=== PATIENT | male | born 1955 | race Two or more races ===

== ENCOUNTER 2025-02-01 01:58 | Emergency (ER) | payer MEDICARE, MEDICAID, SELFPAY ==
[2025-02-01] VITALS (7 sets, daily range): BP systolic 87–140; BP diastolic 57–79; PULSE 79–150; RESP 15–95; TEMP 36.6–36.8; O2SAT 93–96; BMI 32.9
--- NOTE | 2025-02-01 03:48 | PD.EDRME ---
Rapid Medical Screening Exam RME Arrival date/time: 02/01/25 01:58 Chief Complaint: General Adult/Misc Complain Time Seen by Provider: 02/01/25 02:44 Vital signs: Vital Signs Temperature 97.8 F 02/01/25 01:59 Pulse Rate 150 H 02/01/25 01:59 Respiratory Rate 22 H 02/01/25 01:59 Blood Pressure 108/71 02/01/25 01:59 Pulse Oximetry (%) 95 02/01/25 01:59 Oxygen Delivery Method Room Air 02/01/25 01:59 Vital signs reviewed by provider: Yes RME Narrative: 69-year-old male presents to the ED with a complaint of shaking chills that woke him out of his sound sleep. His only other complaint is nausea. He denies any fever, cough, shortness of breath, runny nose or nasal congestion, ear pain or sore throat, urinary frequency or burning with urination. I have greeted and performed a focused initial assessment of this patient. A comprehensive ED assessment and evaluation of the patient, analysis of all test results, and completion of the medical decision making process will be conducted by additional ED providers.
--- NOTE | 2025-02-01 03:52 | XR_ITS ---
Examination: AP chest single view Technique one AP portable semiupright chest single view Date and time: February 01, 2025 0452 hours INDICATIONS: Chills, sepsis protocol today. FINDINGS: Normal heart size. Lungs are clear. The osseous structures are intact IMPRESSION: No active disease
--- NOTE | 2025-02-01 04:01 | EDNOTE_ITS ---
ED Fever RME/HPI General Chief Complaint: General Adult/Misc Complain Stated Complaint: WOKE UP SHAKING Time Seen by Provider: 02/01/25 02:44 Arrival date/time: 02/01/25 01:58 RME / HPI RME / HPI Narrative: 69-year-old male presents to the ED with a complaint of shaking chills that woke him out of his sound sleep. His only other complaint is nausea. He denies any fever, cough, shortness of breath, runny nose or nasal congestion, ear pain or sore throat, urinary frequency or burning with urination. I have greeted and performed a focused initial assessment of this patient. A comprehensive ED assessment and evaluation of the patient, analysis of all test results, and completion of the medical decision making process will be conducted by additional ED providers. ------ This section includes all my notes and documentations, including HPI, PE, and ED course. Agustin Dickens MD HPI: 69yo male brought in by his son presents to the ED for a chief complaint of chills. Patient states he woke up having severe chills a few hours ago. With associated sweating. He denies cough, fever, N/V, abdominal pain, chest pain, dysuria.concerned due to sepsis several years ago with similar symptoms. No other complaints reported. ROS: All negative except as documented in HPI. Physical Exam: General: Alert and oriented. No acute distress when remaining still. Eyes: Conjunctivae and lids clear. ENT: No nasal congestion. Pharynx normal. TM normal bilaterally. Neck: Supple. Heart: Sinus tachycardia. Lungs: No respiratory distress. Good air movement. No rhonchi, wheezing, rales. Abdomen: Soft and nontender. Normal bowel sounds. No distension. No rebound or guarding. Back: No CVA tenderness. Skin: Warm and clammy. Neuro: Alert and oriented X 3. I reviewed all diagnostic test results. My interpretation of the EKG is sinus tachycardia with nonspecific ST-T changes. My interpretation of the chest x-ray is no acute findings, official radiology report is pending. COVID/influenza negative. Complete diagnostic test results pending. For treatment, I ordered IV fluid and Zofran and Rocephin and Tylenol and Toradol. At 6 AM on 02/01/2025, the care of the patient was transferred to Dr. Martinez. Agustin Dickens MD Related Data Home Medications ?Medication ?Instructions ?Recorded ?Confirmed aspirin 81 mg chewable tablet 81 mg PO QDAY 01/04/22 0 01/04/22 atorvastatin 40 mg tablet 40 mg PO QDAY 01/04/2201/04 Previous Rx's ?Medication ?Instructions ?Recorded acetaminophen 500 mg tablet 500 mg PO Q6H PRN fever or pain 01/17/23 (Tylenol Extra Strength) #30 tabs Allergies Allergy/AdvReac Type Severity Reaction Status Date / Time No Known Allergies Allergy Verified 01/16/23 22:38 Review of Systems Review of Systems Systems Reviewed: All systems reviewed, normal except as documented Past Medical History Past Medical History CARDIAC: Positive Hypercholesterolemia; Negative Congestive Heart Failure RESPIRATORY: Negative Chronic Obstructive Pulmonary Disease (COPD) GENITOURINARY: Negative Renal Disease ENDOCRINE: Negative Diabetes Mellitus Type 1 or Diabetes Mellitus Type 2 Social History SMOKING STATUS: Never smoker SUBSTANCE USE: does not use Physical Exam Narrative Physical exam: As noted in HPI. Course Quality Measures none Orders Category Date Time Status Bedside Blood Glucose NOW Care 02/01/25 03:52 Active Bedside COVID-19 Antigen Test NOW Care 02/01/25 03:55 Active Bedside Influenza A&B Antigen Test NOW Care 02/01/25 03:55 Completed Maintenance Service Dispatcher Q4H START 00 Care 02/01/25 03:52 Active Insert IV NOW Care 02/01/25 03:52 Active Strict Intake and Output Routine Care 02/01/25 03:52 Ordered XR chest 1V SEPSIS PROTOCOL Stat Exams 02/01/25 03:52 Taken Blood Culture (Lab) Stat Lab 02/01/25 04:10 Received CBC Stat Lab 02/01/25 04:09 Received CRP [C-Reactive Protein] Stat Lab 02/01/25 04:09 Received Comprehensive Metabolic Panel Stat Lab 02/01/25 04:09 Received ESR [Sed Rate (ESR)] Stat Lab 02/01/25 04:09 Received Lactate (Lactic Acid) Stat Lab 02/01/25 04:09 Results Magnesium Stat Lab 02/01/25 04:09 Received Partial Thromboplastin Time Stat Lab 02/01/25 04:09 Completed Procalcitonin Stat Lab 02/01/25 04:09 Received Prothrombin Time with INR Stat Lab 02/01/25 04:09 Completed Troponin I Stat Lab 02/01/25 04:09 Received Urinalysis Stat Lab 02/01/25 04:05 Completed Urine Culture Stat Lab 02/01/25 04:05 Received Acetaminophen Tab [Tylenol Tab] Med 02/01/25 05:22 Once 650 mg PO X1 ONE Ketorolac Inj [Toradol Inj] Med 02/01/25 05:22 Once 15 mg IVP X1 ONE Ondansetron Inj [Zofran Inj] Med 02/01/25 05:22 Once 4 mg IVP X1 ONE Sodium Chloride 0.9% 1000 ml [Ns] 1,000 ml Med 02/01/25 05:22 Ordered IV 999 mls/hr cefTRIAXone/D5w 1gm IV premix [Rocephin/D5w 1gm IV Med 02/01/25 05:22 Ordered premix] 50 ml IV X1 EKG (RT) Stat RT 02/01/25 03:52 Ordered Oxygen Delivery NOW RT 02/01/25 03:52 Active Vital Signs Vital signs: Vital Signs Temperature 97.8 F 02/01/25 01:59 Pulse Rate 150 H 02/01/25 01:59 Respiratory Rate 22 H 02/01/25 01:59 Blood Pressure 108/71 02/01/25 01:59 Pulse Oximetry (%) 95 02/01/25 01:59 Oxygen Delivery Method Room Air 02/01/25 01:59 Fever MDM Narrative MDM Narrative:: Scribe Attestation: 02/01/25 - Belgica Guerrero am scribing for and in the presence of Dr. Dickens. 69yo male brought in by his son presents to the ED for a chief complaint of chills. Patient states he woke up having significant chills a few hours ago. Patient reports associated sweating. He denies any cough, fever, N/V, abdominal pain, chest pain, dysuria or any other associated symptoms. Son denies any recent sick contacts. No other complaints reported. Patient data External records reviewed:: [facility] previous records (Per chart review, patient was seen here on 01/16/23 for bronchitis.) Clinical information provided by:: patient and family (son) Social determinants that could affect healthcare access:: none Patient has the following chronic illnesses:: HLD, BPH How is presenting disease/condition affected by chronic disease/condition?: u neffected by Evaluation data The following diagnostics were reviewed and interpreted by me:: lab results, radiology exam(s) and EKG tracing(s) (My interpretation of the EKG is: Sinus tachycardia (133 bpm) with nonspecific ST-T changes. Agustin Dickens MD) Lab and/or radiology exams considered but not ordered:: none Interpretation Summary: Complete diagnostic test results are pending. Medications / Prescriptions Medications or Prescriptions considered but not ordered:: none Medication administrations:: Medication Administration History Acetaminophen (Acetaminophen 325 Mg Tablet) 650 mg PO X1 ONE Stop: 02/01/25 05:23 Ceftriaxone Sodium/Dextrose (Rocephin/D5w 1gm Iv Premix) 50 mls @ 100 mls/hr IV X1 ONE Stop: 02/01/25 05:51 Sodium Chloride (Ns) 1,000 mls @ 999 mls/hr IV .Q1H1M ONE Stop: 02/01/25 06:22 Ketorolac Tromethamine (Ketorolac Inj 30 Mg/Ml Vial) 15 mg IVP X1 ONE Stop: 02/01/25 05:23 Ondansetron HCl (Ondansetron Inj 2 Mg/Ml Inj 2 Ml) 4 mg IVP X1 ONE; Protocol Stop: 02/01/25 05:23 I ordered IV fluid, Zofran, Toradol, Tylenol, and Rocephin. Consultations Consultation(s) initiated? (list below): No Diagnosis Fever Differential Diagnosis: cellulitis, fever of unknown origin, gastroenteritis, community acquired pneumonia, pyelonephritis, viral infection, sepsis and influenza Most likely diagnosis given after review of the tests above:: Complete diagnostic test results are pending. Admission Indicated Admission indicated?: not indicated Explain why admission is indicated or not indicated:: Complete diagnostic test results are pending. Admission Request Was there a request for admission?: No Disposition Plan Disposition Plan: other (specify) (Care of the patient was transferred to Dr. Martinez. ) Discharge Plan Prescriptions/Referrals Prescriptions/Med Rec: No Action atorvastatin 40 mg tablet 40 mg PO QDAY Patient Comments: TAKE 1 TABLET BY MOUTH EVERY DAY FOR 90 DAYS aspirin 81 mg tablet,chewable 81 mg PO QDAY Patient Comments: TAKE 1 TABLET BY MOUTH EVERY DAY acetaminophen [Tylenol Extra Strength] 500 mg tablet 500 mg PO Q6H PRN (Reason: fever or pain) Qty: 30 0RF Referrals: Meng ([facility]),Mikal, MD [Primary Care Provider] - In 1 week Problem List Clinical Impression: Chills Patient/Caregiver Discharge Instructions Print Language: Jordanian
[2025-02-01 04:10] LABS: Collection Type, Urine Clean Catch
[2025-02-01 04:27] LABS: Bilirubin,Urine Negative (Negative); Blood,Urine Negative (Negative); Clarity,Urine Turbid (Clear/Hazy); Color,Urine Yellow (Lt Yel-Yel); Glucose, Urine Negative (Negative); Hyaline Casts,Urine < 1 /hpf (0-1); Ketones,Urine Negative (Negative); Leukocyte Esterase,Urine Negative (Negative); Nitrite,Urine Negative (Negative); PH,Urine 5.5 (5.0-7.0); Protein,Urine Trace (Neg - Trace); RBC,Urine 9 /hpf (0-3); Specific Gravity,Urine 1.024 (1.001-1.035); Squamous Epithelial Cell,Urine 2 /hpf (0-5); Urobilinogen,Urine Negative mg/dL (0.0-1.0); WBC,Urine 2 /hpf (0-5)
[2025-02-01 04:28] LABS: Sperm,Urine Present
--- NOTE | 2025-02-01 04:29 | PC.NURSE ---
FAMILY CONTACT- SONRichard FELIX [phone]
[2025-02-01 04:45] LABS: Lactate (Lactic Acid) 3.3 mMol/L (0.4-2.0)
[2025-02-01 05:05] LABS: Basophils # (Auto) 0.1 Thou/mm3 (0.0-0.2); Basophils % (Auto) 0 % (0-2.5); Eosinophils % (Auto) 0 % (0-10); Hematocrit 46.8 % (41.0-53.0); Hemoglobin 16.7 g/dL (13.5-16.0); Immature Granulocytes % (Auto) 1 % (0-0); Immature Granulocytes Auto 0.11 Thou/mm3 (0.00-0.00); Lymphocytes # (Auto) 0.3 Thou/mm3 (1.0-4.8); Lymphocytes % (Auto) 2 % (10-50); Mean Corpuscular HGB Conc 35.7 g/dl (31.0-37.0); Mean Corpuscular Hemoglobin 30.1 pg (25.0-35.0); Mean Corpuscular Volume 85 fL (80-100); Monocytes # (Auto) 0.3 Thou/mm3 (0.0-0.8); Monocytes % (Auto) 2 % (0-12); Neutrophils # (Auto) 11.5 Thou/mm3 (1.8-7.7); Neutrophils % (Auto) 94 % (37-80); Nucleated Red Blood Cell % 0 /100 WBC (0); Platelet Count 147 Thou/mm3 (140-440); RDW Standard Deviation 37.9 fL (35.1-43.9); Red Blood Count 5.54 Miln/mm3 (4.50-5.90); White Blood Count 12.2 Thou/mm3 (3.8-10.6)
[2025-02-01 05:13] LABS: INR 1.1 (0.9-1.3); Partial Thromboplastin Time 24.3 Seconds (22.0-36.0); Prothrombin Time 11.7 Seconds (9.0-12.2)
[2025-02-01 05:31] LABS: Alanine Aminotransferase 39 U/L (10-49); Albumin, Serum 4.6 gm/dL (3.4-4.8); Albumin/Globulin Ratio 1.6 (1.2-2.2); Alkaline Phosphatase 83 U/L (46-116); Anion Gap 14 (7-16); Aspartate Amino Transferase 32 U/L (0-34); BUN/Creatinine Ratio 13 Ratio (12-20); Blood Urea Nitrogen 14 mg/dL (9-23); C-Reactive Protein < 0.5 mg/dL (0.0-0.9); Carbon Dioxide 20.1 mMol/L (20.0-31.0); Chloride 105 mMol/L (98-107); Creatinine (Component) 1.1 mg/dL (0.6-1.3); Estimated Creatinine Clearance 81.1 mL/min (>60); Globulin 2.9 gm/dL (2.3-3.5); Glucose 147 mg/dL (74-106); Magnesium 1.7 mg/dL (1.6-2.6); Osmolality,Calculated 281 (275-295); Potassium 3.1 mMol/L (3.4-5.1); Sodium 139 mMol/L (136-145); Total Protein 7.5 gm/dL (5.7-8.2); Troponin I 0.044 ng/mL (0.0-0.045); eGFR > 60 See Note
[2025-02-01 06:08] LABS: Sed Rate (ESR) 4 mm/hr (0-20)
[2025-02-01] MEDS: KETOROLAC INJ 30 MG/ML VIAL 15 MG IVP (06:09)
[2025-02-01] MEDS: ONDANSETRON INJ 2 MG/ML INJ 2 ML 4 MG IVP (06:10)
[2025-02-01] MEDS: SODIUM CHLORIDE 0.9% 1000 ML 1,000 ML 999 ML IV ×3 (06:10→10:06)
[2025-02-01] MEDS: ACETAMINOPHEN 325 MG TABLET 650 MG PO (06:10)
[2025-02-01] MEDS: cefTRIAXone/D5w 1gm IV premix 1 GM/50 ML BAG IV (06:19)
--- NOTE | 2025-02-01 06:40 | PD.EDADDENDU ---
Emergency Room Addendum Addendum Narrative: 0600: Care assumed from Dr. Dickens, the previous shift emergency physician. Past medical, surgical, social and family history reviewed. Vitals and home medications reviewed. I will assume the care of the patient at this time, pending remainder of diagnostic tests and final disposition. Please refer to the emergency department record for history and examination from initial visit.? Physical exam by me shows patient under no acute distress at this time. 1020: Patient feeling better and plan is to go home. Blood pressure is better. 1134: Patient doing better and will be discharged home. Patient remains clinically stable throughout the emergency department visit. Re-assessment at the time of disposition demonstrates that the patient is in no acute distress. We reviewed all the results, analysis, and treatment plans. Patient is amenable to discharge. Strict return precautions were outlined. Patient was discharged in stable condition. Diagnoses: -Chills Hypokalemia -Lactic acidosis -Elevated procalcitonin -Tachycardia Results Objective Laboratory: Laboratory Last Values WBC 12.2 Thou/mm3 (3.8-10.6) H 02/01/25 04:09 RBC 5.54 Miln/mm3 (4.50-5.90) 02/01/25 04:09 Hgb 16.7 g/dL (13.5-16.0) H 02/01/25 04:09 Hct 46.8 % (41.0-53.0) 02/01/25 04:09 MCV 85 fL (80-100) 02/01/25 04:09 MCH 30.1 pg (25.0-35.0) 02/01/25 04:09 MCHC 35.7 g/dl (31.0-37.0) 02/01/25 04:09 RDW Std Deviation 37.9 fL (35.1-43.9) 02/01/25 04:09 Plt Count 147 Thou/mm3 (140-440) 02/01/25 04:09 Neut % (Auto) 94 % (37-80) H 02/01/25 04:09 Lymph % (Auto) 2 % (10-50) L 02/01/25 04:09 [place] % (Auto) 2 % (0-12) 02/01/25 04:09 Eos % (Auto) 0 % (0-10) 02/01/25 04:09 Baso % (Auto) 0 % (0-2.5) 02/01/25 04:09 Neut # (Auto) 11.5 Thou/mm3 (1.8-7.7) H 02/01/25 04:09 Lymph # (Auto) 0.3 Thou/mm3 (1.0-4.8) L 02/01/25 04:09 [place] # (Auto) 0.3 Thou/mm3 (0.0-0.8) 02/01/25 04:09 Eos # (Auto) 0.0 Thou/mm3 (0.0-0.5) 02/01/25 04:09 Baso # (Auto) 0.1 Thou/mm3 (0.0-0.2) 02/01/25 04:09 Immature Gran # (Auto) 0.11 Thou/mm3 (0.00-0.00) H 02/01/25 04:09 Absolute Nucleated RBC 0.00 Thou/mm3 (0.00-0.00) 02/01/25 04:09 Immature Gran % 1 % (0-0) H 02/01/25 04:09 Nucleated RBC % 0 /100 WBC (0) 02/01/25 04:09 ESR 4 mm/hr (0-20) 02/01/25 04:09 PT 11.7 Seconds (9.0-12.2) 02/01/25 04:09 INR 1.1 (0.9-1.3) 02/01/25 04:09 APTT 24.3 Seconds (22.0-36.0) 02/01/25 04:09 Sodium 139 mMol/L (136-145) 02/01/25 04:09 Potassium 3.1 mMol/L (3.4-5.1) L 02/01/25 04:09 Chloride 105 mMol/L (98-107) 02/01/25 04:09 Carbon Dioxide 20.1 mMol/L (20.0-31.0) 02/01/25 04:09 Anion Gap 14 (7-16) 02/01/25 04:09 BUN 14 mg/dL (9-23) 02/01/25 04:09 Creatinine 1.1 mg/dL (0.6-1.3) 02/01/25 04:09 Estim Creat Clear Calc 81.1 mL/min (>60) 02/01/25 04:09 eGFR > 60 See Note (60-) 02/01/25 04:09 BUN/Creatinine Ratio 13 Ratio (12-20) 02/01/25 04:09 Glucose 147 mg/dL (74-106) H 02/01/25 04:09 Calculated Osmolality 281 (275-295) 02/01/25 04:09 Lactic Acid 2.8 mMol/L (0.4-2.0) H 02/01/25 07:59 Calcium 10.0 mg/dL (8.3-10.6) 02/01/25 04:09 Corrected Calcium 10.0 mg/dL (8.5-10.1) 02/01/25 04:09 Magnesium 1.7 mg/dL (1.6-2.6) 02/01/25 04:09 Total Bilirubin 1.0 mg/dL (0.3-1.2) 02/01/25 04:09 AST 32 U/L (0-34) 02/01/25 04:09 ALT 39 U/L (10-49) 02/01/25 04:09 Alkaline Phosphatase 83 U/L (46-116) 02/01/25 04:09 Troponin I 0.044 ng/mL (0.0-0.045) 02/01/25 04:09 C-Reactive Prot, Quant < 0.5 mg/dL (0.0-0.9) 02/01/25 04:09 Total Protein 7.5 gm/dL (5.7-8.2) 02/01/25 04:09 Albumin 4.6 gm/dL (3.4-4.8) 02/01/25 04:09 Globulin 2.9 gm/dL (2.3-3.5) 02/01/25 04:09 Albumin/Globulin Ratio 1.6 (1.2-2.2) 02/01/25 04:09 Procalcitonin 12.20 ng/ml (0.0-0.49) H 02/01/25 04:09 Ur Collection Type Clean Catch 02/01/25 04:05 Urine Color Yellow (Lt Yel-Yel) 02/01/25 04:05 Urine Clarity Turbid (Clear/Hazy) A 02/01/25 04:05 Urine pH 5.5 (5.0-7.0) 02/01/25 04:05 Ur Specific [place] 1.024 (1.001-1.035) 02/01/25 04:05 Urine Protein Trace (Neg - Trace) 02/01/25 04:05 Urine Glucose (UA) Negative (Negative) 02/01/25 04:05 Urine Ketones Negative (Negative) 02/01/25 04:05 Urine Blood Negative (Negative) 02/01/25 04:05 Urine Nitrite Negative (Negative) 02/01/25 04:05 Urine Bilirubin Negative (Negative) 02/01/25 04:05 Urine Urobilinogen (Auto) Negative mg/dL (0.0-1.0) 02/01/25 04:05 Ur Leukocyte Esterase Negative (Negative) 02/01/25 04:05 Urine RBC 9 /hpf (0-3) H 02/01/25 04:05 Urine WBC 2 /hpf (0-5) 02/01/25 04:05 Ur Squamous Epith Cells 2 /hpf (0-5) 02/01/25 04:05 Urine Bacteria None (None) 02/01/25 04:05 Hyaline Casts < 1 /hpf (0-1) 02/01/25 04:05 Urine Sperm Present (None) A 02/01/25 04:05 Imaging: Procedure(s): XR chest 1V SEPSIS PROTOCOL Accession Number(s): [id number] cc: [employer] ([facility])Mikal MD; Otoniel Carlson MD; Elina Najera PA-C~ Examination: AP chest single view Technique one AP portable semiupright chest single view Date and time: February 01, 2025 0452 hours INDICATIONS: Chills, sepsis protocol today. FINDINGS: Normal heart size. Lungs are clear. The osseous structures are intact IMPRESSION: No active disease Dictated By: Otoniel Carlson MD
[2025-02-01 07:43] LABS: Reflex Lactate? Y
[2025-02-01 08:31] LABS: Lactic Acid, 3 HR 2.8 mMol/L (0.4-2.0)
[2025-02-01] MEDS: LEVOFLOXACIN 250 MG TABLET 500 MG PO (10:39)
[2025-02-01] MEDS: POTASSIUM CHLORIDE 20 mEq TABCR 40 MEQ PO (10:39)
[2025-02-01 10:43] LABS: Lactate (Lactic Acid) 2.6 mMol/L (0.4-2.0)
[2025-02-01 11:10] LABS: Procalcitonin 26.58 ng/ml (0.0-0.49)
[2025-02-01 13:39] LABS: Reflex Lactate? Y
== END 2025-02-01 11:52 | disposition home or self-care (01) ==
PROVIDERS: Family Medicine; Physician Assistant; Emergency Provider Emergency Medicine; PCP Student in an Organized Health Care Education/Training Program
DX: R68.83 Chills (without fever) (principal); E87.6 Hypokalemia; E87.20 Acidosis, unspecified; R00.0 Tachycardia, unspecified
CPT/HCPCS: 36415; 71045; 80053; 81001; 83605; 83735; 84145; 84484; 85025; 85610; 85652; 85730; 86140; 87040; 87077; 87086; 87186; 87400; 87811; 96361; 96365; 96375; 99284; J0696; J1885; J2405; J7030; A9270